=== PATIENT | male | born 1955 | race Caucasian/White ===

== ENCOUNTER 2018-04-05 10:42 | Emergency (ER) | payer SELFPAY ==
[~2018-04-05] VITALS: Ht 170.2 cm; Wt 114.8 kg
[2018-04-05] MEDS ORDERED: CEPHALEXIN MONOHYDRATE 500 MG CAPSULE PO ONE ×2 (13:00→13:07)
[2018-04-05] MEDS ORDERED: DOXYCYCLINE HYCLATE (100 MG) 100 MG TABLET PO ONE (13:00)
[2018-04-05] MEDS ORDERED: DOXYCYCLINE HYCLATE (100 MG) 100 MG TABLET ONE (13:07)
[2018-04-05 13:13] VITALS: BP 124/60
--- NOTE | 2018-04-05 13:14 | NUR ---
Patient discharged to home in stable condition. Written and verbal after care instructions given. Patient verbalizes understanding of instruction.
--- NOTE | 2018-04-05 13:20 | NUR ---
Elaine barnard in ED - 04/05/18 at 1321 by AQUILINO Patient discharged to home in stable condition. Written and verbal after care instructions given. Patient verbalizes understanding of instruction. PT AMBULATED WITH STEADY GAIT UPON DC. 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
--- NOTE | 2018-04-05 13:21 | NUR ---
Patient discharged to home in stable condition. Written and verbal after care instructions given. Patient verbalizes understanding of instruction. AMBULATED WITH STEADY GAIT UPON DC
== END 2018-04-05 13:14 | disposition home or self-care (01) ==
LOC: ER 10:51
DX: E11.69 Type 2 diabetes mellitus with other specified complication (principal); L03.031 Cellulitis of right toe; I11.0 Hypertensive heart disease with heart failure; I50.9 Heart failure, unspecified
CPT/HCPCS: A4606; A6402; Z7610